=== PATIENT | female | born 1960 | race Caucasian/White ===

== ENCOUNTER 2016-09-18 14:49 | Observation (INO) | payer OTHER ==
--- NOTE | 2016-09-18 14:59 | EDPHY ---
H & P HPI/ROS: HPI CHIEF COMPLAINT: Generalized weakness, fast heart rate HISTORY OF PRESENT ILLNESS: This patient very pleasant 56-year-old female she does have significant past medical history for mononucleosis, with recent hospitalization for mono, she is on hormone replacement therapy, otherwise not take any medications. Month of June she was rather ill with mono. She followed up with her primary care doctor was referred to Cardiology for fast heart rate. She saw Dr. Florencia Bach last week and had a stress echo test. She is unaware of the results of that test. She distally were Holter monitor for month and does not know the results of that either. She felt fine today she went to a hike in [place] today. She felt fine during the hike however after the hike she became tachycardic she states she was wearing a heart rate monitor were in her heart rate went into the 140s. She felt very fatigued. Some mild nausea. Denies chest pain. Denies shortness of breath. Denies pleuritic pain. Past Medical History: Hormone replacement therapy, mononucleosis Past Surgical History: No recent surgery Social History: Denies daily use drugs alcohol tobacco products. Family History: Noncontributory Yard Attendant: Dr. Florencia Bach. ROS REVIEW OF SYSTEMS: A comprehensive 10 point review of systems is otherwise negative aside from elements mentioned in the history of present illness. Exam Constitutional anxious appearing, triage nursing summary reviewed, vital signs reviewed, awake/alert. Eyes normal conjunctivae and sclera, EOMI, PERRLA. HENT normal inspection, atraumatic, moist mucus membranes, no epistaxis, neck supple/ no meningismus, no raccoon eyes. Respiratory clear to auscultation bilaterally, normal breath sounds, no respiratory distress, no wheezing. Cardiovascular rate normal, regular rhythm, no murmur, no edema, distal pulses normal. Gastrointestinal soft, non-tender, no rebound, no guarding, normal bowel sounds, no distension, no pulsatile mass. Genitourinary no CVA tenderness. Musculoskeletal no midline vertebral tenderness, full range of motion, no calf swelling, no tenderness of extremities, no meningismus, good pulses, neurovascularly intact. Skin pink, warm, & dry, no rash, skin atraumatic. Neurologic awake, alert and oriented x 3, AAOx3, moves all 4 extremities equally, motor intact, sensory intact, CN II-XII intact, normal cerebellar, normal vision, normal speech. Psychiatric normal mood/affect. Heme/Lymph/Immune no lymphadenopathy. Differential Diagnosis: Includes but is not limited to in a particular order acute anxiety, electrolyte disturbance, acute coronary syndrome, cardiac arrhythmia, SVT, other cardiac arrhythmia, pulmonary embolism, thyroid disease Medical Decision Making: Plan for this patient IV hydration, check blood work, electrolytes, check TSH, urine test, cardiac evaluation full manager cardiac cath, EKG, troponin, D-dimer chest x-ray. Re-evaluation: EKG interpretation by me on record in [facility] system. Impression time of EKG , this is sinus rhythm rate of 85, scooping of the ST segments V4 V5 V6.. Otherwise I do not appreciate acute ischemic change. When I compare this EKG to her previous EKG dated 01/04/2011 this EKG is unchanged morphology. 1746: I had a lengthy discussion with this patient about going home versus hospitalization. The patient is requesting hospitalization for tachycardia profound weakness. Here in the emergency room her workup has been unremarkable. Additionally I did speak with Dr. Bradshaw I did review her recent stress test that is reported to me by Dr. Bradshaw as normal. However after lengthy discussion with patient at bedside she is very concerned about her profound weakness and tachycardia. Patient has not any chest pain here. Her workup here in emergency room is been unremarkable. I have agreed to admit her overnight for observation. As well as further evaluation. Reason for admission is tachycardia profound weakness. Would recommend cardiology seeing consulting on her. Her driver's license examiner is Dr. Florencia Bach Source: Patient Constitutional: Initial Vital Signs Temperature (C) 36.5 C 09/18/16 14:58 Heart Rate 88 09/18/16 14:58 Respiratory Rate 16 09/18/16 14:58 Blood Pressure 142/88 H 09/18/16 14:58 O2 Sat (%) 98 09/18/16 14:58 O2 Delivery Mode Room Air Allergies/Adverse Reactions: Penicillins Allergy (Unknown, Verified 01/04/11 12:18) Home Medications: Medication Instructions Recorded Bi-Est Topical Cream 1 xuan TP MOTUWETHFRSA 09/18/16 Herbals/Supplements -Info Only 1 ea PO DAILY 09/18/16 Pregnenolone, Micronized 25 gm MC HS PRN 09/18/16 [Pregnenolone Micronized] Progesterone, Micronized 300 mg PO DAILY 09/18/16 [Progesterone] Testosterone Dhea Compounded Cream 1 xuan TP MOTUWETHFRSA 09/18/16 Medical Decision Making - Data Points Laboratory Results: Laboratory Results 09/18/16 15:15 09/18/16 15:15 Medications Given: Discontinued Medications Enoxaparin Sodium (Lovenox) 40 mg SC DAILY [facility] Stop: 03/18/17 08:59 Last Admin: 09/19/16 09:55 Dose: Not Given Sodium Chloride (Ns) 1,000 mls @ 0 mls/hr IV EDNOW ONE; Wide Open PRN Reason: Protocol Stop: 09/18/16 15:12 Last Admin: 09/18/16 15:17 Dose: 1,000 mls Sodium Chloride (Ns) 1,000 mls @ 75 mls/hr IV CONT UZMA Stop: 03/17/17 18:44 Last Admin: 09/18/16 22:09 Dose: 1,000 mls Departure - Departure Disposition: [facility] Acute Clinical Impression: Generalized weakness, Heart palpitations Condition: Fair
[2016-09-18] MEDS ORDERED: NS 1,000 ML IV ONE (15:11)
--- NOTE | 2016-09-18 15:16 | CPEKG ---
Heart Rate: 85 RR Interval: 706 P-R Interval: 136 QRSD Interval: 96 QT Interval: 372 QTC Interval: 443 P Debary: 77 QRS Debary: 60 T Wave Debary: 3 EKG Severity - BORDERLINE ECG - EKG Impression: SINUS RHYTHM EKG Impression: BORDERLINE REPOL ABNORMALITY, ANT-LAT LEADS Electronically Signed By: Harley Woodard 18-Sep-2016 19:10:27
[2016-09-18 15:33] LABS: % IMMATURE GRANULYOCYTES 0.3 % (0.0-1.1); ABSOLUTE IMMATURE GRANULOCYTES 0.02 10^3/uL (0.00-0.10); ADD DIFF? NO; ADD MORPH? NO; ADD SCAN? NO; ATYPICAL LYMPHOCYTE FLAG 0 (0-99); FRAGMENT RBC FLAG 0 (0-99); HEMATOCRIT 39.8 % (38.0-47.0); HEMOGLOBIN 13.7 g/dL (12.6-16.3); LEFT SHIFT FLG 0 (0-99); LIPEMIA HEMOLYSIS FLAG 90 (0-99); MEAN CELL HEMOGLOBIN 30.2 pg (27.9-34.1); MEAN CELL HEMOGLOBIN CONCENTR. 34.4 g/dL (32.4-36.7); MEAN CELL VOLUME 87.7 fL (81.5-99.8); MEAN PLATELET VOLUME 9.7 fL (8.7-11.7); PLATELET CLUMPS FLAG 0 (0-99); PLATELET COUNT 286 10^3/uL (150-400); RED BLOOD CELL COUNT 4.54 10^6/uL (4.18-5.33); RED CELL DISTRIBUTION WIDTH 11.9 % (11.5-15.2)
[2016-09-18 15:42] LABS: INR 0.96 (0.83-1.16); PROTIME(PATIENT) 12.7 SEC (12.0-15.0)
[2016-09-18 15:43] LABS: APTT 23.4 SEC (23.0-38.0)
[2016-09-18 15:50] LABS: ALANINE AMINOTRANSFERASE 24 IU/L (9-52); ALBUMIN 4.6 g/dL (3.5-5.0); ALKALINE PHOSPHATASE 67 IU/L (38-126); ANION GAP 13 mEq/L (8-16); ASPARTATE AMINOTRANSFERASE 34 IU/L (14-46); BILIRUBIN,TOTAL 0.7 mg/dL (0.1-1.4); BILIRUBIN-CONJUGATED 0.3 mg/dL (0.0-0.5); BILIRUBIN-UNCONJUGATED 0.4 mg/dL (0.0-1.1); CALCIUM 9.6 mg/dL (8.5-10.4); CARBON DIOXIDE 24 mEq/l (22-31); CHLORIDE 99 mEq/L (97-110); CREATININE 0.7 mg/dL (0.6-1.0); GLOMERULAR FILTRATION RATE > 60; GLUCOSE 118 mg/dL (70-100); SODIUM 136 mEq/L (134-144); TOTAL PROTEIN 7.4 g/dL (6.3-8.2)
[2016-09-18 16:01] LABS: CREATINE KINASE-MB FRACTION 0.67 ng/mL (0-3.19); TROPONIN I < 0.012 ng/mL (0-0.034)
[2016-09-18 16:13] LABS: COLOR PALE YELLOW; LEUKOCYTE ESTERASE,URINE NEGATIVE (NEGATIVE); NITRITE,URINE NEGATIVE (NEGATIVE)
[2016-09-18] MEDS ORDERED: ALBUTEROL 200 PUFFS/18 GM MDI IH PRN (18:36)
[2016-09-18] MEDS ORDERED: LORazepam 0.5 MG TAB PO PRN (18:36)
[2016-09-18] MEDS ORDERED: ONDANSETRON DISINTEGRATING 4 MG TAB PO PRN (18:36)
[2016-09-18] MEDS ORDERED: ACETAMINOPHEN 325 MG TAB PO PRN (18:36)
[2016-09-18] MEDS ORDERED: oxyCODONE IR 5 MG TAB PO PRN (18:36)
[2016-09-18] MEDS ORDERED: PROMETHAZINE HCL 25 MG/ML INJ IVP PRN (18:36)
[2016-09-18] MEDS ORDERED: ONDANSETRON 4 MG/2 ML VIAL IVP PRN (18:36)
[2016-09-18] MEDS ORDERED: NS 1,000 ML IV SCH (18:45)
--- NOTE | 2016-09-18 20:31 | GHP ---
[f rep st] HISTORY AND PHYSICAL DATE OF ADMISSION: 09/18/2016 CHIEF COMPLAINT: Weakness and tachycardia. HISTORY OF PRESENT ILLNESS: This is a 56-year-old female with no significant past medical history p resenting with complaints of weakness, tachycardia, and cold extremities. The patient notes she has had a couple of similar episodes in the past most significantly this was occurring back in 2010 to 2011. At that time she had a significant workup including cardiac catheterization. All of which wa s negative. She then had another bout back in June of this year, however, at that time she was also suffering some sort of viral illness and was hospitalized at an outside hospital. Given that some o f the issues were not fully addressed during that hospitalization she did end up following up with Alejandro Bach who had the patient undergo a stress test with echocardiogram 1 week ago which was com pletely normal. The patient also wore a Holter monitor for 1 month through her primary care migeli eduardo, although the results of this did not appear to have been transmitted to [facility] at this po int. The patient notes that what happened was today she was walking around at an art [employer] when s he notice that she had a little bit of stomach upset followed by noting that her heart rate, which i s being monitored by her work out monitor she was wearing, was increasing from her resting heart rat e which is typically in the 70s to 80s went up to [address] up to 140. She was walking wi th a friend of hers who is a nurse and had her do some vagal maneuvers which did decrease her heart rate briefly but then again began to increase. This is associated with significant fatigue and cool extremities. She notes in the past these episodes have been similar, although this 1 was worse harshil n ever. At this point she continues to feel fatigued but otherwise has no complaints. Her heart ra te has normalized. She has never had chest pain. She has not had fevers or chills. She has not banuelos d any changes in her bowel or bladder habits. PAST MEDICAL HISTORY: Intermittent tachycardia as per HPI. PAST SURGICAL HISTORY: Includes . FAMILY HISTORY: Various family members with coronary artery disease. SOCIAL HISTORY: Patient is a nondrinker, nonsmoker, nondrug user. REVIEW OF SYSTEMS: 10-point review of systems obtained, negative except as per HPI. MEDICATIONS: Include: 1. Progesterone. 2. Pregnenolone testosterone cream. ALLERGIES: Penicillin. PHYSICAL EXAM: VITAL SIGNS: BP 102/69, heart rate 83, respiratory rate 16, O2 sats 94% on room air , temperature is 36.9. GENERAL APPEARANCE: Well-developed, well-nourished female. Awake and alert . No acute distress. EYES: Anicteric. HENT: Oropharynx clear. CARDIOVASCULAR: Regular rate an d rhythm, no MRG. PULMONARY: CTA bilaterally. Normal work of breathing. ABDOMEN: Soft, nontende r, nondistended. EXTREMITIES: No clubbing, cyanosis, or edema. SKIN: Warm, dry, well perfused. NEURO/PSYCH: Oriented, appropriate, pleasant. CLINICAL DATA: Labs reviewed and significant for completely normal CBC. Coags are normal. D-dimer is negative. Chemistry is unremarkable other than glucose of 118. LFTs are normal. TSH is 1.06. Urinalysis is unremarkable. EKG notable for some borderline scooping downward ST segments in II, aVF, V4, V5, V6 similar to prio r EKGs. Chest x-ray showing no acute findings. Possible airways disease. Both of those were personally rev iewed and interpreted. ASSESSMENT/PLAN: This is a 56-year-old female with no significant past medical history presenting w ith weakness and tachycardia. 1. Tachycardia/weakness: Again this occurred prior to admission and has not been present since arr ival. EKG is somewhat abnormal but really unchanged from prior. An initial troponin is negative as well. She has had a significant workup including a 1-month Holter and recent stress echo. Holter results are not available unfortunately. At this point, we will ask for cardiology to evaluate. Gi porter her ongoing symptoms without clear etiology query whether she requires a Link to be placed versu s cardiac cath or both. Again, for tonight we will monitor on telemetry, trend troponins, and await Cardiology recommendations. I will make her n.p.o. after midnight in case a procedure is indicated . I will check a B12, a.m. cortisol, and A1c just for further evaluation. 2. Hyperglycemia. As above we will check hemoglobin A1c. 3. Nausea. This was present during her bout of tachycardia and has resolved. Will monitor. 4. Disposition. Observation status. I suspect she will need less than 48 hours stay for evaluatio n and management of above. Patient is new to my care. Old records reviewed, summarized as per HPI and past medical history. C are plan reviewed with ER physician, including plans for cardiology consultation. /[id number]/MODL
[2016-09-18 22:32] LABS: HEMOGLOBIN A1C 5.3 % (4.0-6.0)
[2016-09-19 04:49] LABS: % IMMATURE GRANULYOCYTES 0.4 % (0.0-1.1); ABSOLUTE IMMATURE GRANULOCYTES 0.04 10^3/uL (0.00-0.10); ADD DIFF? NO; ADD MORPH? NO; ADD SCAN? NO; ATYPICAL LYMPHOCYTE FLAG 0 (0-99); FRAGMENT RBC FLAG 0 (0-99); HEMATOCRIT 37.3 % (38.0-47.0); HEMOGLOBIN 12.6 g/dL (12.6-16.3); LEFT SHIFT FLG 0 (0-99); LIPEMIA HEMOLYSIS FLAG 90 (0-99); MEAN CELL HEMOGLOBIN 30.7 pg (27.9-34.1); MEAN CELL HEMOGLOBIN CONCENTR. 33.8 g/dL (32.4-36.7); MEAN PLATELET VOLUME 10.2 fL (8.7-11.7); PLATELET CLUMPS FLAG 20 (0-99); PLATELET COUNT 265 10^3/uL (150-400); RED CELL DISTRIBUTION WIDTH 12.1 % (11.5-15.2)
[2016-09-19 05:01] LABS: ANION GAP 6 mEq/L (8-16); CALCIUM 8.9 mg/dL (8.5-10.4); CARBON DIOXIDE 24 mEq/l (22-31); CHLORIDE 108 mEq/L (97-110); CREATININE 0.7 mg/dL (0.6-1.0); GLOMERULAR FILTRATION RATE > 60; GLUCOSE 83 mg/dL (70-100); SODIUM 138 mEq/L (134-144)
[2016-09-19 05:11] LABS: TROPONIN I < 0.012 ng/mL (0-0.034)
[2016-09-19 05:29] LABS: CORTISOL-AM 6.5 ug/dL (4.5-22.7)
[2016-09-19 07:24] VITALS: BP 88/50; PULSE 65; RESP 9; TEMP 98.7; O2SAT 97
[2016-09-19] MEDS ORDERED: ENOXAPARIN 40 MG/0.4 ML SYR SC SCH (09:00)
--- NOTE | 2016-09-19 11:04 | GCON ---
[f rep st] CONSULTATION REFERRING PHYSICIAN: Anjelica Mccann MD CHIEF COMPLAINT: Weakness and tachycardia. HISTORY OF PRESENT ILLNESS: This is a 56-year-old female with past history of weakness, tachycardia, and cold extremities that occurred in 2010 and 2011, and has been having increased episode in recent times. The last admission for similar episode in June of 2016 in [facility], comes to the emergency room with similar episode of weakness and tachycardia. The patient describes that she was hiking in the [place] area and had done fine up until then and they were sitting down waiting to go for lunch; however, she started having a little bit of nausea after which she started feeling weak and had cold, clammy fingers, after which she noted that her heart rate was beginning to increase gradually and it went from her usual of 70-80 to 90, and eventually to 120. Occasionally it went up to 140. After this, they decided to come back to [place], thinking that this may be related to altitude. The group started driving to [place] and eventually the tachycardia and the episode got better; however, the patient did mention that she felt extremely tired all through the rest of the day. The patient had seen Dr. Florencia Bach recently. She underwent a stress echocardiogram which was normal. She had a cardiac catheterization in 2010 which was normal. She has had a Holter monitor with us, 3-4 years back, which showed asymptomatic short runs of SVT lasting a maximum of 9 beats, nothing beyond. Besides this, the patient has had an event monitor through her primary care physician. We have not been able to access that up until now. The patient mentions that her previous episode was in May or June when she was skiing, and after that another episode which brought her to [facility]. She thinks that this was her first episode. She has never passed out with this episode. There is no family history of syncope. No chest pain or chest pressure associated with it. No sense of palpitations. Most of these episodes have been caught with sinus tachycardia; thereby, she notices it on her monitor. PAST MEDICAL HISTORY: None other than cardiac catheterization which was normal. FAMILY HISTORY: Of coronary artery disease. SOCIAL HISTORY: Nonsmoker. No alcohol use. REVIEW OF SYSTEMS: A 10-point review of systems negative other than above. MEDICATIONS: Progesterone/testosterone cream. ALLERGIES: Penicillin. PHYSICAL EXAMINATION: VITAL SIGNS: Blood pressure 100/70, heart rate 80, respiratory rate 16, sats 94% on room air. GENERAL APPEARANCE: Well-developed , well-nourished female, awake and alert. No acute distress. EYES: Anicteric , reacting to light, accommodating. OROPHARYNX: Clear. NECK: No thyromegaly. No JVD. CHEST: Good air entry bilaterally equal. No rales, rhonchi or rub. HEART: S1, S2 regular. No S3, no murmurs. ABDOMEN: Soft, nontender. No guarding or rigidity. Bowel sounds present. EXTREMITIES: No edema. No clubbing. No cyanosis. SKIN: Warm, dry, well perfused. NEURO/ PSYCH: Oriented, appropriate. CLINICAL DATA: Reviewed and no lab abnormalities noted. EKG is normal. IMPRESSION AND PLAN: This is a 56-year-old female who had an episode of feeling cold and clammy after feeling nauseous, and after that a gradual rise in heart rate from 70 beats per minute all the way to 120 beats per minute with no effect of vagal maneuvers; however, gradual resolution with significant fatigue all through the day. 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 Currently I have discussed the pathophysiology extensively with the patient and explained to her that she needs to keep herself well hydrated and use compression stockings. Considering the infrequent episodes and lack of syncope, I do not believe that medication is needed at this point in time; however, if she continues to have these episodes, a medication such as midodrine may be necessary. A LINQ monitor may or may not be useful; I will leave it up to Dr. Bach to decide on that. We will continue to make efforts to get hold of her event monitor results from [employer]. Thank you for letting us participate in the patient's care. /[id number]/MODL MTDD
--- NOTE | 2016-09-19 17:20 | GDS ---
[f rep st] DISCHARGE SUMMARY DISCHARGE DIAGNOSES: 1. Weakness and tachycardia. 2. Suspected vasovagal syndrome/orthostatic hypotension. 3. Hyperglycemia. 4. History of intermittent tachycardia, thought related to above. HISTORY OF PRESENT ILLNESS: A 56-year-old female presenting with a cold clammy feeling and intermit tent tachycardia. For details of the patient's initial presentation, please see the history and phy sical dated 09/18/2016. CONSULTATIVE SERVICES: Cardiology. PROCEDURES: None. HOSPITAL COURSE: Vasovagal syndrome versus orthostatic hypotension. The patient was monitored on t elemetry and remained stable. Based on the cardiology assessments, the patient was thought likely b e more orthostatic than vasovagal. They are recommending aggressive fluid hydration in the outpatie nt setting and compression stockings. Plan to have Dr. Bach, her primary cashier courtesy booth, follow in th e outpatient setting, and consider LINQ monitor at that time. We did discuss the use of medications , and since the patient has so few symptoms, feel the risk/benefit ratio is still against the use of a daily medication. The patient will be discharged with outpatient [facility] followup in the n ext week 2-3 weeks. MEDICATIONS: Please reference med rec printed on 09/19/2016. FOLLOWUP APPOINTMENTS: Dr. Bach. PENDING STUDIES: At the time of this dictation are none. TIME SPENT: I spent greater than 30 minutes in the planning and coordination of this discharge. /[id number]/MODL
== END 2016-09-19 10:56 | disposition home or self-care (01) ==
LOC: INTOOBSV 17:52 → F2W 18:30
PROVIDERS: ADMIT Internal Medicine; ATTEND Internal Medicine
DX: R00.0 Tachycardia, unspecified (principal); R53.83 Other fatigue; R73.9 Hyperglycemia, unspecified
CPT/HCPCS: 71020; 93005; 96360; 99285; G0378; 82607-90